=== PATIENT | male | born 1970 | race American Indian/Alaskan Native ===

== ENCOUNTER 2018-02-26 16:55 | Emergency (ER) | payer BC | END 2018-02-26 17:00 | disposition left against medical advice (07) | LOC: ED 16:55 ==

== ENCOUNTER 2019-11-19 14:12 | Emergency (ER) | payer BC ==
[2019-11-19 14:19] VITALS: BP 146/86
--- NOTE | 2019-11-19 15:27 | Emergency Department Report ---
- General Chief complaint: Pain General Stated complaint: FACE SWOLLEN Time Seen by Provider: 11/19/19 15:09 Source: patient Mode of arrival: Ambulatory Limitations: No Limitations - History of Present Illness Initial comments: Patient is a 48-year-old male presents emergency room with complaints of an abscess. He states that 2 days ago he noticed a hair bump present to the chin and that he messed with it and popped it. He states then the swelling began to increase. He denies any more drainage. He denies any fever, vomiting, diarrhea, difficulty swallowing, SOB. He denies any dental pain. He states that he last saw a dentist 2 months ago and had teeth pulled at that time and was advised that there were other teeth that needed to be pulled. He has a past medical history of diabetes and is on insulin. He reports that his sugars have been running normal per patient. He has an allergy to metformin. - Related Data Previous Rx's Medication Instructions Recorded Last Taken Type Insulin Glargine [Lantus VIAL] 30 units SUB-Q QHS 30 Days units 02/24/18 Unknown Rx Nicotine [Habitrol] 21 mg TD QDAY #14 patch 02/24/18 Unknown Rx Vancomycin 1,250 mg IV Q12H mg 02/24/18 Unknown Rx traMADoL [Ultram] 50 mg PO Q6HR PRN #14 tablet 02/24/18 Unknown Rx Gabapentin 300 mg PO BID #60 cap 02/25/18 Unknown Rx Insulin NPH Hum/Reg Insulin Hm 5 unit SQ AC 30 Days vial 02/25/18 Unknown Rx [Humulin 70-30 Vial] Clindamycin [Clindamycin CAP] 450 mg PO TID 7 Days #63 capsule 11/19/19 Unknown Rx Ibuprofen [Motrin 600 MG tab] 600 mg PO Q8H PRN #14 tablet 11/19/19 Unknown Rx Allergies Allergy/AdvReac Type Severity Reaction Status Date / Time metformin Allergy Dizziness Verified 02/18/18 10:52 Abscess Boil HPI - HPI Chief Complaint: Pain General Stated Complaint: FACE SWOLLEN Time Seen by Provider: 11/19/19 15:09 Home Medications: Previous Rx's Medication Instructions Recorded Last Taken Type Insulin Glargine [Lantus VIAL] 30 units SUB-Q QHS 30 Days units 02/24/18 Unknown Rx Nicotine [Habitrol] 21 mg TD QDAY #14 patch 02/24/18 Unknown Rx Vancomycin 1,250 mg IV Q12H mg 02/24/18 Unknown Rx traMADoL [Ultram] 50 mg PO Q6HR PRN #14 tablet 02/24/18 Unknown Rx Gabapentin 300 mg PO BID #60 cap 02/25/18 Unknown Rx Insulin NPH Hum/Reg Insulin Hm 5 unit SQ AC 30 Days vial 02/25/18 Unknown Rx [Humulin 70-30 Vial] Clindamycin [Clindamycin CAP] 450 mg PO TID 7 Days #63 capsule 11/19/19 Unknown Rx Ibuprofen [Motrin 600 MG tab] 600 mg PO Q8H PRN #14 tablet 11/19/19 Unknown Rx Allergies/Adverse Reactions: Allergies Allergy/AdvReac Type Severity Reaction Status Date / Time metformin Allergy Dizziness Verified 02/18/18 10:52 ED Review of Systems ROS: Stated complaint: FACE SWOLLEN Other details as noted in HPI Comment: All other systems reviewed and negative ED Past Medical Hx - Past Medical History Previous Medical History?: Yes Hx Diabetes: Yes Hx Deep Vein Thrombosis: No - Surgical History Past Surgical History?: Yes Hx Pacemaker: No Hx Internal Defibrillator: No Additional Surgical History: Lung scraping - Social History Smoking Status: Current Every Day Smoker Substance Use Type: None - Medications Home Medications: Home Medications Medication Instructions Recorded Confirmed Last Taken Type Insulin Glargine [Lantus VIAL] 30 units SUB-Q QHS 30 Days units 02/24/18 Unknown Rx Nicotine [Habitrol] 21 mg TD QDAY #14 patch 02/24/18 Unknown Rx Vancomycin 1,250 mg IV Q12H mg 02/24/18 Unknown Rx traMADoL [Ultram] 50 mg PO Q6HR PRN #14 tablet 02/24/18 Unknown Rx Gabapentin 300 mg PO BID #60 cap 02/25/18 Unknown Rx Insulin NPH Hum/Reg Insulin Hm 5 unit SQ AC 30 Days vial 02/25/18 Unknown Rx [Humulin 70-30 Vial] Clindamycin [Clindamycin CAP] 450 mg PO TID 7 Days #63 capsule 11/19/19 Unknown Rx Ibuprofen [Motrin 600 MG tab] 600 mg PO Q8H PRN #14 tablet 11/19/19 Unknown Rx ED Physical Exam - General Limitations: No Limitations General appearance: alert, in no apparent distress - Head Head exam: Present: atraumatic, normocephalic, other (there is a 2 cm area of induration present to the chin, no fluctuance, no drainage, no necrosis, small scab present, inside the mouth present to the lower jaw there is induration present, he has poor dentition, several missing teeth/dental caries, very small amount of swelling in the submandibular region, uvula is midline, no uvular edema or deviation, no trismus, underneath the tongue is soft, no muffled voice) - Eye Eye exam: Present: normal appearance - ENT ENT exam: Present: mucous membranes moist - Neurological Exam Neurological exam: Present: alert, oriented X3 - Psychiatric Psychiatric exam: Present: normal affect, normal mood - Skin Skin exam: Present: warm, dry ED Course Vital Signs 11/19/19 14:15 Temperature 98.3 F Pulse Rate 88 Respiratory 14 Rate Blood Pressure 146/86 O2 Sat by Pulse 100 Oximetry ED Medical Decision Making - Medical Decision Making Patient is a 48-year-old male presents emergency room with complaints of an abscess. He states that 2 days ago he noticed a hair bump present to the chin and that he messed with it and popped it. He states then the swelling began to increase. He denies any more drainage. He denies any fever, vomiting, diarrhea, difficulty swallowing, SOB. He denies any dental pain. He states that he last saw a dentist 2 months ago and had teeth pulled at that time and was advised that there were other teeth that needed to be pulled. He has a past medical history of diabetes and is on insulin. He reports that his sugars have been running normal per patient. He has an allergy to metformin. VSS. on exam: there is a 2 cm area of induration present to the chin, no fluctuance, no drainage, no necrosis, small scab present, inside the mouth present to the lower jaw there is induration present, he has poor dentition, several missing teeth/dental caries, very small amount of swelling in the submandibular region, uvula is midline, no uvular edema or deviation, no trismus, underneath the tongue is soft, no muffled voice. Appears to be very indurated tissue at this time, there is no drainable abscess to the anterior portion of the chin, incision and drainage not recommended at this time. Could also be from a dental abscess as patient has dental caries and several missing teeth. Difficult to say if the induration is only from the infected hair follicle or also from a dental abscess. Patient will be given prescription for clindamycin which will cover both dental and skin. Also given prescription for ibuprofen. Advised patient Please take medication as prescribed. Increase your water intake. Follow-up with a primary care doctor. Follow-up with a dentist. Please have area reexamined within 2 days. Return to emergency room immediately for any new or worsening symptoms. - Differential Diagnosis facial abscess, folliculitis, carbuncle, dental abscess, dental caries Critical care attestation.: If time is entered above; I have spent that time in minutes in the direct care o f this critically ill patient, excluding procedure time. ED Disposition Clinical Impression: Facial abscess, Facial cellulitis, Dental caries Disposition: TO HOME OR SELFCARE Is pt being admited?: No Does the pt Need Aspirin: No Condition: Stable Instructions: Dental Caries (ED), Cellulitis (ED), Abscess (ED) Additional Instructions: Please take medication as prescribed. Increase your water intake. Follow-up with a primary care doctor. Follow-up with a dentist. Please have area reexamined within 2 days. Return to emergency room immediately for any new or worsening symptoms. Prescriptions: Clindamycin [Clindamycin CAP] 450 mg PO TID 7 Days #63 capsule Ibuprofen [Motrin 600 MG tab] 600 mg PO Q8H PRN #14 tablet PRN Reason: Pain Referrals: your, primary care doctor [Other] - 2-3 Days your, dentist [Other] - 2-3 Days Time of Disposition: 15:28 Print Language: JAPANESE
== END 2019-11-19 15:54 | disposition home or self-care (01) ==
LOC: ED 14:12
DX: L02.01 Cutaneous abscess of face (principal); L03.211 Cellulitis of face; K02.9 Dental caries, unspecified; E11.9 Type 2 diabetes mellitus without complications; F17.200 Nicotine dependence, unspecified, uncomplicated; Z88.6 Allergy status to analgesic agent; Z79.899 Other long term (current) drug therapy
CPT/HCPCS: 99282